=== PATIENT | male | born 1980 | race African-American/Black ===

== ENCOUNTER 2016-10-05 20:52 | Observation (INO) | payer SELFPAY ==
[~2016-10-05] VITALS: Ht 177.8 cm; Wt 61.1 kg
[2016-10-06] MEDS ORDERED: SALINE FLUSH 10 ML FLUSH PRN (00:35)
[2016-10-06] MEDS ORDERED: SODIUM CHLORIDE 0.9% 1,000 ML IV SCH (00:35)
[2016-10-06] MEDS ORDERED: ONDANSETRON 4 MG VIAL IV PRN (00:35)
[2016-10-06] MEDS: SALINE FLUSH 10 ML FLUSH SCH ×2 (04:44→08:00)
[2016-10-06 05:22] VITALS: BP_SYST 98; RESP 18; TEMP 97.5
[2016-10-06 05:23] VITALS: Ht 177.8 cm; Wt 61.1 kg
[2016-10-06] MEDS ORDERED: SODIUM CHLORIDE 0.9% FLUSH BAG 500 ML IV SCH (06:00)
[2016-10-06 07:27] VITALS: BP_SYST 94; RESP 16; TEMP 97.8
[2016-10-06 11:51] VITALS: BP_SYST 117; RESP 18; TEMP 97.6
[2016-10-06 12:17] VITALS: BP_SYST 117; RESP 18; TEMP 97.6
== END 2016-10-06 11:46 | disposition home or self-care (01) ==
LOC: ENRESERVTM → ENRESERV → ENRESERVDT → ER 20:52 → EMR 20:53 → ENPENDDIS 20:53 → EEVIPCON 20:53 → MERGE 20:53 → UNDOADMOB 10-06 00:35 → EMR 10-06 00:35 → PCU2 10-06 04:19 → EMR 10-06 04:19 → PCU2 10-06 10:35
PROVIDERS: ADMIT Internal Medicine; ATTEND Internal Medicine
DX: T42.4X2A Poisoning by benzodiazepines, intentional self-harm, initial encounter (principal); F17.210 Nicotine dependence, cigarettes, uncomplicated; F19.24 Other psychoactive substance dependence with psychoactive substance-induced mood disorder
CPT/HCPCS: 36415; 80053; 80307; 80320; 80329; 81003; 84439; 84443; 85025; 85610; 99219